=== PATIENT | female | born 1955 | race Caucasian/White ===

== ENCOUNTER → 2017-03-19 | Outpatient (CLI) | payer BC ==
--- NOTE | 2017-03-22 14:30 | MY ---
EXAMINATION: Bilateral digital mammography utilizing CAD. HISTORY: Screening exam. Comparison is made to previous studies dated 01/15/2016, 12/24/2014, 12/13/19 14. FINDINGS: Bilateral heterogeneously dense breast tissue. No suspicious calcifications, masses or architectural distortions. No pathologic appearing lymph nodes, no abnormal skin thickening or nip ple inversion. CAD highlighted regions appear normal at this time. IMPRESSION: BI-RADS category I - negative mammogram. Continued screening according to ACR-ACS gu idelines suggested. THE FALSE-NEGATIVE RATE OF MAMMOGRAM IS APPROXIMATELY 10%. MANAGEMENT OF A PALPABLE ABNORMALITY MUST BE BASED UPON CLINICAL GROUNDS. SENSITIVITY FOR DETECTION OF ABNORMALITIES IN DENSE BREASTS IS LOW. NOTE: A letter will be sent to the patient regarding findings. [facility] -- OLLIE Jackson [phone] - FAX [phone]
== END ==
LOC: MW.MAM 08:49
PROVIDERS: ATTEND Nurse Practitioner Family
DX: Z12.31 Encounter for screening mammogram for malignant neoplasm of breast (principal)
CPT/HCPCS: G0202; G0202-26

== ENCOUNTER 2021-12-18 19:14 | Inpatient (IN) | payer MEDICARE, BC ==
[2021-12-18] MEDS ORDERED: Lactated Ringers 1,000 ML IV SCH ×2 (19:30→23:45)
[2021-12-18] MEDS ORDERED: Morphine 2 MG/ML SYRINGE IVPUSH ONE (19:36)
[2021-12-18] MEDS ORDERED: Ondansetron 4 MG/2 ML SDV IVPUSH ONE (20:05)
[2021-12-18 20:20] LABS: BLOOD UREA NITROGEN,BUN 16 mg/dL (7.0-18.0); CARBON DIOXIDE,CO2 28.4 mmol/L (21.0-32.0); CHLORIDE,CL 96 mmol/L (98-107); GLUCOSE RANDOM 129 mg/dL (74-106); SODIUM,NA 133 mmol/L (136-145)
[2021-12-18] MEDS ORDERED: Albuterol/Ipratropium 3.0-0.5 MG/3 ML Neb Soln NEB PRN (23:53)
[2021-12-18] MEDS ORDERED: Ondansetron 4 MG/2 ML SDV IVPUSH PRN (23:54)
[2021-12-19] MEDS: Morphine 2 MG/ML SYRINGE IVPUSH PRN ×2 (00:03→04:47)
[2021-12-19 07:59] LABS: BLOOD UREA NITROGEN,BUN 10 mg/dL (7.0-18.0); CARBON DIOXIDE,CO2 25.7 mmol/L (21.0-32.0); CHLORIDE,CL 99 mmol/L (98-107); GLUCOSE RANDOM 115 mg/dL (74-106); SODIUM,NA 133 mmol/L (136-145)
[2021-12-19] MEDS ORDERED: ceFAZolin 2 GM in Premix Bag 1 BAG IV SCH ×2 (08:15→16:00)
[2021-12-19] MEDS ORDERED: Magnesium Sulfate/Water 2 GM in Premix Bag 1 BAG IV ONE (09:00)
[2021-12-19] MEDS: Pantoprazole 40 MG in Sodium Chloride 0.9% 10 ML IVPUSH SCH (09:38)
[2021-12-19] MEDS ORDERED: Lidocaine 2% 5 ML SDV ONE (13:18)
[2021-12-19] MEDS ORDERED: Rocuronium Bromide 50 MG/5 ML Syringe ONE (13:19)
[2021-12-19] MEDS ORDERED: Propofol 200 MG/20 ML SDV ONE (13:19)
[2021-12-19] MEDS ORDERED: fentaNYL 100 MCG/2 ML SDV ONE (13:19)
[2021-12-19] MEDS ORDERED: Midazolam 1 MG/ML 2 ML SDV ONE (13:19)
[2021-12-19] MEDS ORDERED: Dexamethasone 4 MG/ML 5 ML MDV ONE (13:19)
[2021-12-19] MEDS ORDERED: ceFAZolin 1 GM Vial ONE (13:29)
[2021-12-19] MEDS ORDERED: Ondansetron 4 MG/2 ML SDV ONE (15:27)
[2021-12-19] MEDS ORDERED: fentaNYL 100 MCG/2 ML SDV IVPUSH PRN (16:13)
[2021-12-19] MEDS ORDERED: Morphine 4 MG/ML VIAL IVPUSH PRN (16:13)
[2021-12-19] MEDS ORDERED: Albuterol 0.083% 2.5 MG/3 ML Neb Soln NEB PRN (16:13)
[2021-12-19] MEDS ORDERED: Ondansetron 4 MG/2 ML SDV IVPUSH PRN (16:13)
[2021-12-19] MEDS ORDERED: Naloxone 0.4 MG/ML SDV IVPUSH PRN (16:13)
[2021-12-19] MEDS ORDERED: HYDROmorphone 1 MG/ML Syringe IVPUSH PRN (16:13)
[2021-12-19] MEDS ORDERED: Metoclopramide 10 MG/2 ML SDV IVPUSH PRN (16:13)
[2021-12-19] MEDS ORDERED: Sodium Chloride 0.9% 10 ML Syringe FLUSH PRN (16:35)
[2021-12-19] MEDS ORDERED: Sodium Chloride 0.9% 2.5 ML Syringe FLUSH PRN (16:35)
[2021-12-19] MEDS ORDERED: Morphine 2 MG/ML SYRINGE IVPUSH PRN (16:35)
[2021-12-19] MEDS: ceFAZolin 2 GM in Premix Bag 1 BAG IV SCH (18:00)
[2021-12-19] MEDS: Rosuvastatin 10 MG Tab PO SCH (23:03)
[2021-12-19] MEDS: Oxybutynin 5 MG Tab PO SCH (23:05)
[2021-12-20] MEDS: ceFAZolin 2 GM in Premix Bag 1 BAG IV SCH (02:54)
[2021-12-20] MEDS: Levothyroxine 50 MCG Tab PO SCH (07:16)
[2021-12-20] MEDS: Oxybutynin 5 MG Tab PO SCH ×3 (07:17→23:11)
[2021-12-20] MEDS: Pantoprazole 40 MG in Sodium Chloride 0.9% 10 ML IVPUSH SCH (08:51)
[2021-12-20] MEDS: Lisinopril/Hydrochlorothiazide 10-12.5 MG Tab PO SCH (08:52)
[2021-12-20] MEDS: Enoxaparin 40 MG/0.4 ML Syringe SUBCUT SCH (08:52)
[2021-12-20 11:11] LABS: CARBON DIOXIDE,CO2 25.2 mmol/L (21.0-32.0)
[2021-12-20] MEDS: Rosuvastatin 10 MG Tab PO SCH (23:11)
[2021-12-20] MEDS: Acetaminophen/oxyCODONE 325-5 MG Tab PO PRN (23:12)
[2021-12-21] MEDS: Levothyroxine 50 MCG Tab PO SCH ×2 (06:16→09:22)
[2021-12-21] MEDS: Oxybutynin 5 MG Tab PO SCH ×3 (06:16→21:08)
[2021-12-21 09:00] LABS: BLOOD UREA NITROGEN,BUN 13 mg/dL (7.0-18.0); CARBON DIOXIDE,CO2 26.8 mmol/L (21.0-32.0); CHLORIDE,CL 99 mmol/L (98-107); GLUCOSE RANDOM 116 mg/dL (74-106); POTASSIUM,K 4.1 mmol/L (3.5-5.1); SODIUM,NA 137 mmol/L (136-145)
[2021-12-21] MEDS: Pantoprazole 40 MG in Sodium Chloride 0.9% 10 ML IVPUSH SCH (09:13)
[2021-12-21] MEDS: Lisinopril/Hydrochlorothiazide 10-12.5 MG Tab PO SCH (09:13)
[2021-12-21] MEDS: Enoxaparin 40 MG/0.4 ML Syringe SUBCUT SCH (09:13)
[2021-12-21] MEDS: Acetaminophen/oxyCODONE 325-5 MG Tab PO PRN (18:48)
[2021-12-21] MEDS: Rosuvastatin 10 MG Tab PO SCH (21:08)
[2021-12-22] MEDS: Acetaminophen/oxyCODONE 325-5 MG Tab PO PRN (06:33)
[2021-12-22] MEDS: Levothyroxine 50 MCG Tab PO SCH (06:34)
[2021-12-22] MEDS: Oxybutynin 5 MG Tab PO SCH ×3 (06:34→21:17)
[2021-12-22] MEDS: Lisinopril/Hydrochlorothiazide 10-12.5 MG Tab PO SCH (08:40)
[2021-12-22] MEDS: Iron Polysaccharides Complex 150 MG Cap PO SCH (08:41)
[2021-12-22] MEDS: Enoxaparin 40 MG/0.4 ML Syringe SUBCUT SCH (08:41)
[2021-12-22] MEDS: Pantoprazole 40 MG in Sodium Chloride 0.9% 10 ML IVPUSH SCH (08:42)
[2021-12-22] MEDS: Acetaminophen 325 MG Tab PO PRN (20:33)
[2021-12-22] MEDS: Rosuvastatin 10 MG Tab PO SCH (21:17)
[2021-12-23] MEDS: Oxybutynin 5 MG Tab PO SCH ×3 (04:59→21:05)
[2021-12-23 07:10] LABS: BLOOD UREA NITROGEN,BUN 17 mg/dL (7.0-18.0); CARBON DIOXIDE,CO2 30.5 mmol/L (21.0-32.0); CHLORIDE,CL 101 mmol/L (98-107); GLUCOSE RANDOM 112 mg/dL (74-106); POTASSIUM,K 4.7 mmol/L (3.5-5.1); SODIUM,NA 135 mmol/L (136-145)
[2021-12-23] MEDS: Pantoprazole 40 MG Tab.CR PO SCH (08:29)
[2021-12-23] MEDS: Levothyroxine 50 MCG Tab PO SCH (08:29)
[2021-12-23] MEDS: Calcium Carbonate/Vitamin D3 1500 MG-400 Units Tab PO SCH (08:30)
[2021-12-23] MEDS: Iron Polysaccharides Complex 150 MG Cap PO SCH (08:31)
[2021-12-23] MEDS: Lisinopril/Hydrochlorothiazide 10-12.5 MG Tab PO SCH (08:31)
[2021-12-23] MEDS: Apixaban 2.5 MG Tab PO SCH ×2 (08:45→21:05)
[2021-12-23] MEDS: Acetaminophen/oxyCODONE 325-5 MG Tab PO PRN (19:49)
[2021-12-23] MEDS: Rosuvastatin 10 MG Tab PO SCH (21:05)
[2021-12-24] MEDS: Oxybutynin 5 MG Tab PO SCH ×3 (05:34→21:05)
[2021-12-24] MEDS: Pantoprazole 40 MG Tab.CR PO SCH ×2 (06:13→07:50)
[2021-12-24] MEDS: Levothyroxine 50 MCG Tab PO SCH ×2 (06:13→07:50)
[2021-12-24 07:30] LABS: BLOOD UREA NITROGEN,BUN 19 mg/dL (7.0-18.0); CARBON DIOXIDE,CO2 29.7 mmol/L (21.0-32.0); CHLORIDE,CL 98 mmol/L (98-107); GLUCOSE RANDOM 111 mg/dL (74-106); POTASSIUM,K 4.7 mmol/L (3.5-5.1); SODIUM,NA 133 mmol/L (136-145)
[2021-12-24] MEDS: Apixaban 2.5 MG Tab PO SCH ×2 (08:21→21:05)
[2021-12-24] MEDS: Iron Polysaccharides Complex 150 MG Cap PO SCH (08:21)
[2021-12-24] MEDS: Lisinopril/Hydrochlorothiazide 10-12.5 MG Tab PO SCH (08:22)
[2021-12-24] MEDS: Calcium Carbonate/Vitamin D3 1500 MG-400 Units Tab PO SCH (08:22)
[2021-12-24] MEDS: Acetaminophen 325 MG Tab PO PRN (17:29)
[2021-12-24] MEDS: Rosuvastatin 10 MG Tab PO SCH (21:05)
[2021-12-25] MEDS: Acetaminophen 325 MG Tab PO PRN ×3 (05:32→21:45)
[2021-12-25] MEDS: Oxybutynin 5 MG Tab PO SCH ×3 (05:33→21:45)
[2021-12-25] MEDS: Levothyroxine 50 MCG Tab PO SCH (06:31)
[2021-12-25] MEDS: Pantoprazole 40 MG Tab.CR PO SCH (06:31)
[2021-12-25 06:47] LABS: BLOOD UREA NITROGEN,BUN 22 mg/dL (7.0-18.0); CARBON DIOXIDE,CO2 27.9 mmol/L (21.0-32.0); CHLORIDE,CL 97 mmol/L (98-107); GLUCOSE RANDOM 114 mg/dL (74-106); POTASSIUM,K 3.9 mmol/L (3.5-5.1); SODIUM,NA 132 mmol/L (136-145)
[2021-12-25] MEDS: Calcium Carbonate/Vitamin D3 1500 MG-400 Units Tab PO SCH (10:36)
[2021-12-25] MEDS: Iron Polysaccharides Complex 150 MG Cap PO SCH (10:36)
[2021-12-25] MEDS: Apixaban 2.5 MG Tab PO SCH ×2 (10:37→21:44)
[2021-12-25] MEDS: Lisinopril/Hydrochlorothiazide 10-12.5 MG Tab PO SCH (10:40)
[2021-12-25] MEDS: Acetaminophen/oxyCODONE 325-5 MG Tab PO PRN (13:48)
[2021-12-25] MEDS: Rosuvastatin 10 MG Tab PO SCH (21:45)
[2021-12-26] MEDS: Levothyroxine 50 MCG Tab PO SCH (06:34)
[2021-12-26] MEDS: Oxybutynin 5 MG Tab PO SCH ×3 (06:34→21:30)
[2021-12-26] MEDS: Pantoprazole 40 MG Tab.CR PO SCH (06:34)
[2021-12-26] MEDS: Calcium Carbonate/Vitamin D3 1500 MG-400 Units Tab PO SCH (09:01)
[2021-12-26] MEDS: Lisinopril/Hydrochlorothiazide 10-12.5 MG Tab PO SCH (09:01)
[2021-12-26] MEDS: Apixaban 2.5 MG Tab PO SCH ×2 (09:02→21:30)
[2021-12-26] MEDS: Iron Polysaccharides Complex 150 MG Cap PO SCH (09:02)
[2021-12-26] MEDS: Acetaminophen 325 MG Tab PO PRN (13:08)
[2021-12-26] MEDS: Rosuvastatin 10 MG Tab PO SCH (21:30)
[2021-12-27] MEDS: Oxybutynin 5 MG Tab PO SCH ×3 (06:29→22:33)
[2021-12-27] MEDS: Levothyroxine 50 MCG Tab PO SCH (06:29)
[2021-12-27] MEDS: Pantoprazole 40 MG Tab.CR PO SCH (06:29)
[2021-12-27] MEDS: Iron Polysaccharides Complex 150 MG Cap PO SCH (08:18)
[2021-12-27] MEDS: Lisinopril/Hydrochlorothiazide 10-12.5 MG Tab PO SCH (08:19)
[2021-12-27] MEDS: Apixaban 2.5 MG Tab PO SCH ×2 (08:19→22:33)
[2021-12-27] MEDS: Calcium Carbonate/Vitamin D3 1500 MG-400 Units Tab PO SCH (08:19)
[2021-12-27] MEDS: Acetaminophen 325 MG Tab PO PRN (14:59)
[2021-12-27] MEDS: Rosuvastatin 10 MG Tab PO SCH (22:33)
[2021-12-28] MEDS: Oxybutynin 5 MG Tab PO SCH ×3 (05:30→22:19)
[2021-12-28] MEDS: Acetaminophen 325 MG Tab PO PRN ×2 (05:30→12:43)
[2021-12-28] MEDS: Levothyroxine 50 MCG Tab PO SCH (06:58)
[2021-12-28] MEDS: Pantoprazole 40 MG Tab.CR PO SCH (06:59)
[2021-12-28] MEDS: Lisinopril/Hydrochlorothiazide 10-12.5 MG Tab PO SCH (08:36)
[2021-12-28] MEDS: Iron Polysaccharides Complex 150 MG Cap PO SCH (08:36)
[2021-12-28] MEDS: Apixaban 2.5 MG Tab PO SCH ×2 (08:36→22:19)
[2021-12-28] MEDS: Calcium Carbonate/Vitamin D3 1500 MG-400 Units Tab PO SCH (08:36)
[2021-12-28] MEDS: Acetaminophen/oxyCODONE 325-5 MG Tab PO PRN (20:00)
[2021-12-28] MEDS: Rosuvastatin 10 MG Tab PO SCH (22:19)
[2021-12-29] MEDS: Oxybutynin 5 MG Tab PO SCH ×3 (06:32→21:56)
[2021-12-29] MEDS: Pantoprazole 40 MG Tab.CR PO SCH (06:32)
[2021-12-29] MEDS: Levothyroxine 50 MCG Tab PO SCH (06:32)
[2021-12-29] MEDS: Apixaban 2.5 MG Tab PO SCH ×2 (08:02→21:56)
[2021-12-29] MEDS: Calcium Carbonate/Vitamin D3 1500 MG-400 Units Tab PO SCH (08:02)
[2021-12-29] MEDS: Iron Polysaccharides Complex 150 MG Cap PO SCH (08:03)
[2021-12-29] MEDS: Lisinopril/Hydrochlorothiazide 10-12.5 MG Tab PO SCH (08:05)
[2021-12-29 11:08] LABS: BLOOD UREA NITROGEN,BUN 17 mg/dL (7.0-18.0); CARBON DIOXIDE,CO2 25.6 mmol/L (21.0-32.0); CHLORIDE,CL 94 mmol/L (98-107); GLUCOSE RANDOM 213 mg/dL (74-106); POTASSIUM,K 4.2 mmol/L (3.5-5.1); SODIUM,NA 131 mmol/L (136-145)
[2021-12-29] MEDS: Acetaminophen/oxyCODONE 325-5 MG Tab PO PRN (11:15)
[2021-12-29] MEDS ORDERED: Bisacodyl 10 MG Supp RECTAL PRN (11:17)
[2021-12-29] MEDS: Docusate Sodium 100 MG Cap PO SCH ×2 (14:39→21:56)
[2021-12-29] MEDS: Rosuvastatin 10 MG Tab PO SCH (21:56)
[2021-12-30] MEDS: Levothyroxine 50 MCG Tab PO SCH ×2 (05:57→08:05)
[2021-12-30] MEDS: Pantoprazole 40 MG Tab.CR PO SCH ×2 (05:57→08:04)
[2021-12-30] MEDS: Oxybutynin 5 MG Tab PO SCH ×2 (05:57→15:11)
[2021-12-30] MEDS: Iron Polysaccharides Complex 150 MG Cap PO SCH (08:11)
[2021-12-30] MEDS: Apixaban 2.5 MG Tab PO SCH (08:11)
[2021-12-30] MEDS: Docusate Sodium 100 MG Cap PO SCH (08:11)
[2021-12-30] MEDS: Lisinopril/Hydrochlorothiazide 10-12.5 MG Tab PO SCH (08:11)
[2021-12-30] MEDS: Calcium Carbonate/Vitamin D3 1500 MG-400 Units Tab PO SCH (08:11)
== END 2021-12-30 13:50 | disposition home or self-care (01) | DRG 482 ==
LOC: MW.ED 19:14 → MW.MS 20:42
PROVIDERS: ADMIT Student in an Organized Health Care Education/Training Program; ATTEND Student in an Organized Health Care Education/Training Program
PROC: 0QS606Z Reposition Right Upper Femur with Intramedullary Internal Fixation Device, Open Approach (ICD-10-PCS; principal; 2021-12-18)
DX: S72.141A Displaced intertrochanteric fracture of right femur, initial encounter for closed fracture (principal); E78.5 Hyperlipidemia, unspecified; I10 Essential (primary) hypertension; E78.00 Pure hypercholesterolemia, unspecified; M19.90 Unspecified osteoarthritis, unspecified site; E03.9 Hypothyroidism, unspecified; Z20.822 Contact with and (suspected) exposure to COVID-19; Z79.890 Hormone replacement therapy; W19.XXXA Unspecified fall, initial encounter
CPT/HCPCS: 36415; 71045; 73502; 73552; 80053; 85025; 85610; 93005; 96374; 99285; J2270; J7120; U0002; 01230; 80048; 81001; 82947; 83735; 84100; 84484; 85014; 85018; 87086; 97110-GP; 97116-GP; 97161-GP; 97165-GO; 97530-GP; A9270-GY; C1713; C1769; C9113; J0131; J0690; J1100; J1650; J2250; J2370; J2405; J2704; J3010; J3475

== ENCOUNTER 2022-03-06 05:28 | Emergency (ER) | payer MEDICARE, BC ==
[2022-03-06] MEDS ORDERED: Sodium Chloride 0.9% 10 ML Syringe FLUSH PRN (05:43)
[2022-03-06] MEDS ORDERED: Sodium Chloride 0.9% 2.5 ML Syringe FLUSH PRN (05:43)
[2022-03-06 06:26] LABS: BLOOD UREA NITROGEN,BUN 9 mg/dL (7.0-18.0); CARBON DIOXIDE,CO2 28.2 mmol/L (21.0-32.0); CHLORIDE,CL 101 mmol/L (98-107); GLUCOSE RANDOM 109 mg/dL (74-106); POTASSIUM,K 3.1 mmol/L (3.5-5.1); SODIUM,NA 139 mmol/L (136-145)
[2022-03-06] MEDS ORDERED: Sodium Chloride 0.9% 1,000 ML IV ONE (08:41)
[2022-03-06] MEDS ORDERED: Fluconazole 150 MG Tab PO ONE (09:55)
== END 2022-03-06 10:46 | disposition home or self-care (01) ==
LOC: MW.ED 05:28
DX: S01.01XA Laceration without foreign body of scalp, initial encounter (principal); N39.0 Urinary tract infection, site not specified; F03.90 Unspecified dementia, unspecified severity, without behavioral disturbance, psychotic disturbance, mood disturbance, and anxiety; E78.00 Pure hypercholesterolemia, unspecified; I10 Essential (primary) hypertension; M19.90 Unspecified osteoarthritis, unspecified site; Z79.899 Other long term (current) drug therapy; Z79.01 Long term (current) use of anticoagulants; Z20.822 Contact with and (suspected) exposure to COVID-19; W01.0XXA Fall on same level from slipping, tripping and stumbling without subsequent striking against object, initial encounter
CPT/HCPCS: 12001; 36415; 70450; 71045; 80053; 80305; 80307; 81001; 84484; 85025; 85610; 93005; 99284; A9270; J3490; J7030; U0002; 93010; 99285

== ENCOUNTER 2022-03-13 13:00 | Emergency (ER) | payer MEDICARE, BC | END 2022-03-13 14:00 | disposition left against medical advice (07) | LOC: MW.ED 13:00 | DX: Z53.21 Procedure and treatment not carried out due to patient leaving prior to being seen by health care provider (principal) ==

== ENCOUNTER 2023-06-17 08:45 | Emergency (ER) | payer MEDICARE, BC ==
[2023-06-17] MEDS ORDERED: Sodium Chloride 0.9% 10 ML Syringe FLUSH PRN (09:21)
[2023-06-17] MEDS ORDERED: Sodium Chloride 0.9% 2.5 ML Syringe FLUSH PRN (09:21)
[2023-06-17] MEDS ORDERED: Gabapentin 300 MG Cap PO ONE (09:42)
[2023-06-17] MEDS ORDERED: Aspirin 325 MG Tab PO ONE (09:42)
[2023-06-17 10:32] LABS: BASOPHILS PERCENT AUTO 0.6 % (0.0-1.5); EOSINOPHILS ABSOLUTE AUTO 0.1 K/uL (0.0-0.7); EOSINOPHILS PERCENT AUTO 2.2 % (0.0-7.0); HEMATOCRIT 41.8 % (36.0-46.0); LYMPHOCYTES ABSOLUTE AUTO 1.3 K/uL (0.6-2.4); LYMPHOCYTES PERCENT AUTO 23.7 % (16.0-40.0); MEAN CORPUSCULAR HEMOGLOBIN 29.5 pg (27.0-32.0); MEAN CORPUSCULAR HGB CONC 33.5 g/dL (31.0-37.0); MONOCYTES ABSOLUTE AUTO 0.4 K/uL (0.0-0.8); NEUTROPHILS ABSOLUTE AUTO 3.6 K/uL (1.4-5.7); NEUTROPHILS PERCENT AUTO 66.5 % (48.0-80.0); NRBC ABSOLUTE 0 K/uL; PLATELET COUNT,PLT 237 K/uL (150-400); RED BLOOD CELL COUNT 4.75 M/uL (4.30-5.90); WHITE BLOOD CELL COUNT,WBC 5.41 K/uL (4.0-11.0)
[2023-06-17 10:59] LABS: ALANINE AMINOTRANSFERASE,ALT 19 IU/L (14-63); ALBUMIN 3.9 g/dL (3.4-5.0); ALKALINE PHOSPHATASE 89 U/L (46-116); ASPARTATE AMNIOTRANSFERASE,AST 16 IU/L (15-37); BILIRUBIN TOTAL 0.6 mg/dL (0.2-1.0); BLOOD UREA NITROGEN,BUN 18 mg/dL (7.0-18.0); CALCIUM 10.6 mg/dL (8.5-10.1); CARBON DIOXIDE,CO2 29.6 mmol/L (21.0-32.0); CHLORIDE,CL 102 mmol/L (98-107); CREATININE 0.9 mg/dL (0.6-1.0); EST CRCL DRUG DOSING (CG) 58.18 mL/min; GLUCOSE RANDOM 115 mg/dL (74-106); LIPASE 79 U/L (73-393); PHOSPHORUS 4.1 mg/dL (2.6-4.7); POTASSIUM,K 5.6 mmol/L (3.5-5.1); PROTEIN TOTAL,TP 7.9 g/dL (6.4-8.2); SODIUM,NA 140 mmol/L (136-145)
[2023-06-17 11:00] LABS: ESTIMATED GFR 70 mL/min (>60)
== END 2023-06-17 11:59 | disposition home or self-care (01) ==
LOC: MW.ED 08:45
DX: G89.29 Other chronic pain (principal); M25.551 Pain in right hip; E78.00 Pure hypercholesterolemia, unspecified; I10 Essential (primary) hypertension; Z79.899 Other long term (current) drug therapy
CPT/HCPCS: 36415; 73502; 76705; 80053; 83690; 84100; 84484; 85025; 93005; 99284; A9270; J3490; 93010; 99283

== ENCOUNTER 2023-11-24 18:19 | Emergency (ER) | payer MEDICARE, BC ==
[2023-11-24] MEDS ORDERED: Sodium Chloride 0.9% 2.5 ML Syringe FLUSH PRN (19:05)
[2023-11-24] MEDS ORDERED: Sodium Chloride 0.9% 10 ML Syringe FLUSH PRN (19:05)
[2023-11-24] MEDS ORDERED: Sodium Chloride 0.9% 1,000 ML IV STA (19:08)
[2023-11-24 19:50] LABS: BASOPHILS ABSOLUTE AUTO 0.04 K/uL (0.00-0.20); BASOPHILS PERCENT AUTO 0.4 % (0.0-1.0); EOSINOPHILS ABSOLUTE AUTO 0.05 K/uL (0.00-0.45); EOSINOPHILS PERCENT AUTO 0.5 % (0.0-6.0); HEMATOCRIT 40.7 % (37.0-47.0); HEMOGLOBIN 13.5 g/dL (12.0-16.0); IMMATURE GRAN ABSOLUTE AUTO 0.04 K/uL (0.00-0.05); IMMATURE GRAN PERCENT AUTO 0.4 % (0.0-0.4); LYMPHOCYTES ABSOLUTE AUTO 0.83 K/uL (1.00-4.80); MEAN CORPUSCULAR HEMOGLOBIN 29.6 pg (28.0-32.0); MEAN CORPUSCULAR HGB CONC 33.2 g/dL (32.0-36.0); MEAN CORPUSCULAR VOLUME 89.3 fL (83.0-99.0); MEAN PLATELET VOLUME 9.1 fL (9.4-12.3); MONOCYTES ABSOLUTE AUTO 0.64 K/uL (0.00-0.80); MONOCYTES PERCENT AUTO 6.1 % (0.0-8.0); NEUTROPHILS ABSOLUTE AUTO 8.82 K/uL (1.80-7.70); NEUTROPHILS PERCENT AUTO 84.6 % (41.0-71.0); PLATELET COUNT,PLT 196 K/uL (150-400); RED BLOOD CELL COUNT 4.56 M/uL (4.10-5.30); WHITE BLOOD CELL COUNT,WBC 10.42 K/uL (3.9-11.3)
[2023-11-24 20:12] LABS: A/G RATIO 1.1 (0.9-1.6); ALBUMIN 3.4 g/dL (3.4-5.0); BILIRUBIN TOTAL 0.7 mg/dL (0.2-1.0); CALCIUM 9.1 mg/dL (8.5-10.1); CARBON DIOXIDE,CO2 26.1 mmol/L (21.0-32.0); EST CRCL DRUG DOSING (CG) 52.36 mL/min; POTASSIUM,K 4.4 mmol/L (3.5-5.1); PROTEIN TOTAL,TP 6.4 g/dL (6.4-8.2)
[2023-11-24 20:15] LABS: MAGNESIUM 1.7 mg/dL (1.8-2.4)
[2023-11-24] MEDS ORDERED: Magnesium Sulfate/Water 2 GM in Premix Bag 1 BAG IV STA (20:19)
[2023-11-24 21:17] LABS: COLOR,URINE YELLOW; GLUCOSE,URINE NEGATIVE (NEGATIVE); KETONES,URINE 40 mg/dL (NEGATIVE); LEUKOCYTE ESTERASE,URINE TRACE (NEGATIVE); NITRITE,URINE NEGATIVE (NEGATIVE); OCCULT BLOOD,URINE NEGATIVE (NEGATIVE); PROTEIN,URINE NEGATIVE (NEGATIVE); UROBILINOGEN,URINE 0.2 EU/dL (<2.0)
[2023-11-24 21:26] LABS: APPEARANCE,URINE HAZY; BILIRUBIN,URINE SMALL (NEGATIVE)
[2023-11-24 21:27] LABS: BACTERIA,URINE FEW (NEGATIVE); CALCIUM OXALATE CRYSTALS,URINE FEW (NEGATIVE); MUCUS,URINE MODERATE (NONE-MOD); SQUAMOUS EPITHELIAL CELLS,UR FEW
[2023-11-24 21:44] LABS: CORONAVIRUS COVID-19 NAA NEGATIVE (NEGATIVE); INFLUENZA A NAA NEGATIVE (NEGATIVE); INFLUENZA B NAA NEGATIVE (NEGATIVE); RESPIRATORY SYNCYTIAL VIR NAA NEGATIVE (NEGATIVE)
== END 2023-11-24 22:29 | disposition home or self-care (01) ==
LOC: MW.ED 18:19
DX: S09.90XA Unspecified injury of head, initial encounter (principal); I10 Essential (primary) hypertension; E78.00 Pure hypercholesterolemia, unspecified; Z20.822 Contact with and (suspected) exposure to COVID-19; Z79.899 Other long term (current) drug therapy; W18.30XA Fall on same level, unspecified, initial encounter; Y92.009 Unspecified place in unspecified non-institutional (private) residence as the place of occurrence of the external cause
CPT/HCPCS: 0241U; 36415; 70450; 72125; 80053; 81001; 83690; 83735; 84484; 85025; 87086; 93005; 96361; 96365; 99284; J3475; J3490; J7030; 93010; 99283

== ENCOUNTER 2024-01-08 10:23 | Inpatient (IN) | payer MEDICARE, BC ==
[2024-01-08 10:42] LABS: BASE EXCESS VENOUS 2.4 (-2.0-3.0); BICARBONATE,VENOUS 28 mEq/L (23-28); PCO2 VENOUS 45 mmHG (41-51)
[2024-01-08] MEDS: Sodium Chloride 0.9% 10 ML Syringe FLUSH PRN (10:42)
[2024-01-08] MEDS: Sodium Chloride 0.9% 2.5 ML Syringe FLUSH PRN (10:43)
[2024-01-08 10:49] LABS: BASOPHILS ABSOLUTE AUTO 0.01 K/uL (0.00-0.20); BASOPHILS PERCENT AUTO 0.1 % (0.0-1.0); HEMATOCRIT 40.1 % (37.0-47.0); HEMOGLOBIN 13.6 g/dL (12.0-16.0); IMMATURE GRAN ABSOLUTE AUTO 0.03 K/uL (0.00-0.05); IMMATURE GRAN PERCENT AUTO 0.4 % (0.0-0.4); LYMPHOCYTES ABSOLUTE AUTO 0.29 K/uL (1.00-4.80); LYMPHOCYTES PERCENT AUTO 3.9 % (24.0-44.0); MEAN CORPUSCULAR HEMOGLOBIN 29.6 pg (28.0-32.0); MEAN CORPUSCULAR HGB CONC 33.9 g/dL (32.0-36.0); MEAN CORPUSCULAR VOLUME 87.4 fL (83.0-99.0); MEAN PLATELET VOLUME 9.6 fL (9.4-12.3); MONOCYTES ABSOLUTE AUTO 0.41 K/uL (0.00-0.80); MONOCYTES PERCENT AUTO 5.6 % (0.0-8.0); NEUTROPHILS ABSOLUTE AUTO 6.61 K/uL (1.80-7.70); PLATELET COUNT,PLT 190 K/uL (150-400); RED BLOOD CELL COUNT 4.59 M/uL (4.10-5.30); WHITE BLOOD CELL COUNT,WBC 7.35 K/uL (3.9-11.3)
[2024-01-08 10:51] LABS: PO2 VENOUS < 30 mmHG
[2024-01-08 11:03] LABS: INR 1.12 (0.86-1.11); PTT,PARTIAL THROMBOPLSTIN TIME 23.4 SEC (23.9-30.7)
[2024-01-08 11:27] LABS: A/G RATIO 0.9 (0.9-1.6); ALBUMIN 3.5 g/dL (3.4-5.0); BILIRUBIN TOTAL 0.5 mg/dL (0.2-1.0); CALCIUM 9.2 mg/dL (8.5-10.1); CARBON DIOXIDE,CO2 25.2 mmol/L (21.0-32.0); CREATININE 1.1 mg/dL (0.6-1.0); EST CRCL DRUG DOSING (CG) 45.82 mL/min; POTASSIUM,K 3.8 mmol/L (3.5-5.1); PROTEIN TOTAL,TP 7.4 g/dL (6.4-8.2)
[2024-01-08] MEDS: Sodium Chloride 0.9% 1,000 ML IV ONE (11:36)
[2024-01-08 12:53] LABS: MAGNESIUM 1.6 mg/dL (1.8-2.4); PHOSPHORUS 3.5 mg/dL (2.6-4.7)
[2024-01-08] MEDS: Magnesium Sulfate/Water 2 GM in Premix Bag 1 BAG IV ONE (16:22)
[2024-01-08] MEDS: Sodium Chloride 0.9% 1,000 ML IV SCH (17:26)
[2024-01-08] MEDS ORDERED: Enoxaparin 40 MG/0.4 ML Syringe SUBCUT SCH (20:00)
[2024-01-08 21:50] LABS: APPEARANCE,URINE CLEAR; BILIRUBIN,URINE NEGATIVE (NEGATIVE); COLOR,URINE YELLOW; GLUCOSE,URINE NEGATIVE (NEGATIVE); KETONES,URINE 15 mg/dL (NEGATIVE); LEUKOCYTE ESTERASE,URINE NEGATIVE (NEGATIVE); NITRITE,URINE NEGATIVE (NEGATIVE); OCCULT BLOOD,URINE TRACE-INTACT (NEGATIVE); PROTEIN,URINE NEGATIVE (NEGATIVE); UROBILINOGEN,URINE 0.2 EU/dL (<2.0)
[2024-01-08 22:01] LABS: BACTERIA,URINE RARE (NEGATIVE); EPITHELIAL CELLS,URINE OCCASIONAL (NONE-FEW); MUCUS,URINE LIGHT (NONE-MOD); RBC,URINE 0-2 (0-2/HPF); WBC,URINE 0-2 (0-5/HPF)
[2024-01-09 07:57] LABS: BASOPHILS ABSOLUTE AUTO 0.01 K/uL (0.00-0.20); BASOPHILS PERCENT AUTO 0.2 % (0.0-1.0); HEMATOCRIT 36.2 % (37.0-47.0); IMMATURE GRAN ABSOLUTE AUTO 0.01 K/uL (0.00-0.05); IMMATURE GRAN PERCENT AUTO 0.2 % (0.0-0.4); LYMPHOCYTES ABSOLUTE AUTO 0.85 K/uL (1.00-4.80); LYMPHOCYTES PERCENT AUTO 18.3 % (24.0-44.0); MEAN CORPUSCULAR HEMOGLOBIN 29.4 pg (28.0-32.0); MEAN CORPUSCULAR HGB CONC 33.1 g/dL (32.0-36.0); MEAN CORPUSCULAR VOLUME 88.7 fL (83.0-99.0); MEAN PLATELET VOLUME 9.7 fL (9.4-12.3); MONOCYTES ABSOLUTE AUTO 0.58 K/uL (0.00-0.80); MONOCYTES PERCENT AUTO 12.5 % (0.0-8.0); NEUTROPHILS PERCENT AUTO 68.8 % (41.0-71.0); PLATELET COUNT,PLT 155 K/uL (150-400); RED BLOOD CELL COUNT 4.08 M/uL (4.10-5.30); WHITE BLOOD CELL COUNT,WBC 4.65 K/uL (3.9-11.3)
[2024-01-09 08:28] LABS: A/G RATIO 0.9 (0.9-1.6); ALBUMIN 2.8 g/dL (3.4-5.0); BILIRUBIN TOTAL 0.5 mg/dL (0.2-1.0); CALCIUM 8.5 mg/dL (8.5-10.1); CREATININE 0.7 mg/dL (0.6-1.0); EST CRCL DRUG DOSING (CG) 66.42 mL/min; MAGNESIUM 1.7 mg/dL (1.8-2.4); POTASSIUM,K 3.6 mmol/L (3.5-5.1)
[2024-01-09] MEDS: Magnesium Sulfate/Water 2 GM in Premix Bag 1 BAG IV ONE (12:12)
[2024-01-09] MEDS: Citalopram 20 MG Tab PO SCH (12:16)
[2024-01-09] MEDS: Levothyroxine 50 MCG Tab PO SCH (12:16)
[2024-01-09] MEDS: Donepezil 5 MG Tab PO SCH (21:59)
[2024-01-09] MEDS: QUEtiapine 25 MG Tab PO SCH (21:59)
[2024-01-09] MEDS: Rosuvastatin 10 MG Tab PO SCH (21:59)
[2024-01-10 06:12] LABS: HEMATOCRIT 32.5 % (37.0-47.0); HEMOGLOBIN 10.6 g/dL (12.0-16.0); MEAN CORPUSCULAR HEMOGLOBIN 28.8 pg (28.0-32.0); MEAN CORPUSCULAR HGB CONC 32.6 g/dL (32.0-36.0); MEAN CORPUSCULAR VOLUME 88.3 fL (83.0-99.0); MEAN PLATELET VOLUME 9.2 fL (9.4-12.3); PLATELET COUNT,PLT 135 K/uL (150-400); RED BLOOD CELL COUNT 3.68 M/uL (4.10-5.30); WHITE BLOOD CELL COUNT,WBC 3.56 K/uL (3.9-11.3)
[2024-01-10 06:45] LABS: A/G RATIO 0.8 (0.9-1.6); ALBUMIN 2.5 g/dL (3.4-5.0); BILIRUBIN TOTAL 0.6 mg/dL (0.2-1.0); CALCIUM 8.1 mg/dL (8.5-10.1); CARBON DIOXIDE,CO2 22.1 mmol/L (21.0-32.0); CREATININE 0.6 mg/dL (0.6-1.0); EST CRCL DRUG DOSING (CG) 77.49 mL/min; MAGNESIUM 1.7 mg/dL (1.8-2.4); POTASSIUM,K 3.2 mmol/L (3.5-5.1); PROTEIN TOTAL,TP 5.5 g/dL (6.4-8.2)
[2024-01-10] MEDS: Lisinopril/Hydrochlorothiazide 10-12.5 MG Tab PO SCH (08:42)
[2024-01-10] MEDS: Potassium Chloride 20 MEQ Tab.ER PO ONE (08:42)
[2024-01-10] MEDS: Magnesium Sulfate/Water 2 GM in Premix Bag 1 BAG IV ONE (10:50)
[2024-01-10] MEDS: Enoxaparin 40 MG/0.4 ML Syringe SUBCUT SCH (16:37)
[2024-01-11 07:12] LABS: BASOPHILS ABSOLUTE AUTO 0.01 K/uL (0.00-0.20); BASOPHILS PERCENT AUTO 0.3 % (0.0-1.0); EOSINOPHILS ABSOLUTE AUTO 0.06 K/uL (0.00-0.45); EOSINOPHILS PERCENT AUTO 1.7 % (0.0-6.0); HEMATOCRIT 33.3 % (37.0-47.0); HEMOGLOBIN 11.1 g/dL (12.0-16.0); IMMATURE GRAN ABSOLUTE AUTO 0.01 K/uL (0.00-0.05); IMMATURE GRAN PERCENT AUTO 0.3 % (0.0-0.4); LYMPHOCYTES ABSOLUTE AUTO 1.05 K/uL (1.00-4.80); LYMPHOCYTES PERCENT AUTO 28.9 % (24.0-44.0); MEAN CORPUSCULAR HEMOGLOBIN 29.1 pg (28.0-32.0); MEAN CORPUSCULAR HGB CONC 33.3 g/dL (32.0-36.0); MEAN CORPUSCULAR VOLUME 87.2 fL (83.0-99.0); MEAN PLATELET VOLUME 9.4 fL (9.4-12.3); MONOCYTES ABSOLUTE AUTO 0.43 K/uL (0.00-0.80); MONOCYTES PERCENT AUTO 11.8 % (0.0-8.0); NEUTROPHILS ABSOLUTE AUTO 2.07 K/uL (1.80-7.70); PLATELET COUNT,PLT 156 K/uL (150-400); RED BLOOD CELL COUNT 3.82 M/uL (4.10-5.30); WHITE BLOOD CELL COUNT,WBC 3.63 K/uL (3.9-11.3)
[2024-01-11 07:37] LABS: A/G RATIO 0.8 (0.9-1.6); ALBUMIN 2.4 g/dL (3.4-5.0); BILIRUBIN TOTAL 0.5 mg/dL (0.2-1.0); CALCIUM 8.3 mg/dL (8.5-10.1); CARBON DIOXIDE,CO2 24.7 mmol/L (21.0-32.0); CREATININE 0.7 mg/dL (0.6-1.0); EST CRCL DRUG DOSING (CG) 66.42 mL/min; MAGNESIUM 1.6 mg/dL (1.8-2.4); POTASSIUM,K 3.4 mmol/L (3.5-5.1); PROTEIN TOTAL,TP 5.5 g/dL (6.4-8.2)
[2024-01-11] MEDS: Potassium Chloride 20 MEQ Tab.ER PO ONE (09:13)
[2024-01-11] MEDS: Magnesium Sulfate/Water 4 GM in Premix Bag 1 BAG IV ONE (09:19)
== END 2024-01-11 13:00 | DRG 566 ==
LOC: MW.ED 10:23 → MW.MS 13:15
PROVIDERS: ADMIT Family Medicine; ATTEND Family Medicine
DX: F03.90 Unspecified dementia, unspecified severity, without behavioral disturbance, psychotic disturbance, mood disturbance, and anxiety (principal); M62.82 Rhabdomyolysis; T79.6XXA Traumatic ischemia of muscle, initial encounter; E83.42 Hypomagnesemia; S80.12XA Contusion of left lower leg, initial encounter; Z66 Do not resuscitate; E78.00 Pure hypercholesterolemia, unspecified; I10 Essential (primary) hypertension; M19.90 Unspecified osteoarthritis, unspecified site; G30.9 Alzheimer's disease, unspecified; F02.80 Dementia in other diseases classified elsewhere, unspecified severity, without behavioral disturbance, psychotic disturbance, mood disturbance, and anxiety; Z79.899 Other long term (current) drug therapy; Z87.81 Personal history of (healed) traumatic fracture; W19.XXXA Unspecified fall, initial encounter; Y92.009 Unspecified place in unspecified non-institutional (private) residence as the place of occurrence of the external cause
CPT/HCPCS: 36415; 70450; 71045; 72125; 73502; 80053; 82550; 82803; 83690; 83735; 84100; 84484; 85025; 85610; 85730; 93005; 96360; 99285; J3490; J7030; 81001; 85027; 93010; 97110-GP; 97163-GP; 97530-GP; A9270-GY; J1650; J3475